=== PATIENT | female | born 1930 | race Caucasian/White ===

== ENCOUNTER 2018-10-07 17:16 | Inpatient (IN) ==
[2018-10-08] MEDS ORDERED: Naloxone 0.4 MG/ML INJ IVP PRN (01:02)
[2018-10-08] MEDS ORDERED: 0.9 % Sodium Chloride 1,000 ML IVC SCH (01:15)
--- NOTE | 2018-10-08 01:28 | Internal Med History&Physical ---
Date of Encounter: 10/07/17 Time of Encounter: 23:45 Internal Medicine - H&P: HPI Chief complaint: Fall Admitted From: Hospital to Hospital Transfer Plans for Post Hospital Care: Transfer Personnel Associate Care History of present illness: Ms. Frank is a 88 year old female with past medical history significant for hypertension, acid reflux, anemia, glaucoma, dementia, diverticulosis, chronic back pain, and depression who presents as hospital transfer from [facility] after being transferred from [facility] following a mechanical fall at her extended care facility while getting out of bed. Patient was transferred to [facility] for orthopedic surgery, however their OR had a water leak and patient subsequently had to be transferred to [facility]. HPI was limited with patient due to baseline history of dementia. Daughter was at bedside during admission. Daughter reports patient was getting out of bed last night at her nursing facility without assistance and fell and immediately had pain to her right hip. No known history of striking head or loss of consciousness. [facility] completed xray of right hip which showed fracture through the neck of the femur, mild degree of impaction with mild proximal displacement of distal fragment and moderate varus and posterior angulation, with intact and correctly located femoral head, and mild narrowing of the hip joint spaces bilaterally, and intact pelvic ring. [facility] also completed a chest xray which showed no acute process. [facility] completed CBC, BMP, troponin, and PT/INR which included a white blood cell count of 16, hemoglobin of 9, and GFR of 52. Patient currently denies any headache, chest pain, shortness of breath, cough, abdominal pain, bowel or bladder changes. Reviewed sending facility findings with patients daughter. Daughter denies any known recent illnesses, fever, or cough. Daughter understands code status will need changed for any surgical procedures and agrees. Past Med Surg Social Fam HX - Past Medical History Medical history: CHF, dementia, GERD, hypertension, other Additional medical history: Diverticulitis. Anemia. Glaucoma Psychiatric history: depression - Past Surgical History Surgical History: cholecystectomy, hysterectomy - Social History Smoking Status: Former smoker Alcohol use: none Drug use: none Internal Medicine - H&P: Meds Allergy/AdvReac Type Severity Reaction Status Date / Time TREVOR Inhibitors Allergy Swelling Verified 10/07/18 22:30 of the Eye enalaprilat [From Vasotec] Allergy Facial Verified 10/07/18 22:30 swelling aspirin [ASA] AdvReac GI bleed Verified 10/07/18 22:30 nitrofurantoin AdvReac UTI/Nausea Verified 10/07/18 22:30 [From Macrobid] All Systems PM: A 10-system review of systems was performed and is negative for pertinent findings except as documented above in the HPI. - Constitutional Vitals: Temp Pulse Resp BP Pulse Ox 99.0 F 82 18 139/64 96 10/07/18 21:59 10/07/18 21:59 10/07/18 21:59 10/07/18 21:59 10/07/18 21:59 Exam: General: Alert. Disoriented, at baseline per daughter secondary to dementia. Skin:Normal color, no rash, no lesions. HEENT:Pupils equal, round and reactive. Cardiovascular:Heart murmur noted. No JVD. Pulse regular. Lungs:Normal breath sounds, no wheezes or crackles. Abdomen:Soft, non-tender, no rigidity. Extremities:No deformity, no edema or tenderness, no joint swelling or clubbing. Denies any current tenderness to fracture site. Distal PMS intact. Neurological:Normal cognition and motor skills. Pulses:Carotid and radial pulses normal +2. Rest of the physical exam is non contributory. - Assessment and Plan (1) Fall Current Visit: Yes Status: Acute Assessment and plan: Denies any other injury besides right hip. Fall precautions ordered. Qualifiers: Encounter type: initial encounter Qualified Code(s): W19.XXXA - Unspecified fall, initial encounter (2) Femoral neck fracture Current Visit: Yes Status: Acute Assessment and plan: Sending ER obtained xray of right hip showing a fracture through the neck of the femur. Unable to complete orthopedic consultation at [facility] due to water leak in OR. Sending facility spoke to production internship ortho who agreed to see patient in consult. Pain control with PRN pain medications. NPO. Qualifiers: Qualified Code(s): S72.001A - Fracture of unspecified part of neck of right femur, initial encounter for closed fracture (3) Murmur, cardiac Current Visit: Yes Status: Acute Assessment and plan: No known history of cardiac murmur. Echocardiogram ordered. (4) Increased white blood cell count Current Visit: Yes Status: Acute Assessment and plan: No signs of infection. Chest xray clear. Afebrile. UA pending. Repeat labs ordered. Qualifiers: Leukocytosis type: unspecified Qualified Code(s): D72.829 - Elevated white blood cell count, unspecified (5) Decreased hemoglobin Current Visit: Yes Status: Acute Assessment and plan: History of anemia, unknown hemoglobin baseline. Repeat labs ordered. (6) Decreased GFR Current Visit: Yes Status: Acute Assessment and plan: Unknown baseline GFR. Avoid nephrotoxins. Repeat labs ordered. - Time Spent With Patient Total time spent is greater than 50% in coordination of care (as documented) at patient's floor/unit and/or counseling patient:
[2018-10-08 03:06] LABS: Bilirubin,Urine Negative (Negative); Blood,Urine Large (Negative); Clarity,Urine Turbid (Clear); Color,Urine Yellow (Yellow); Glucose,Urine (UA) Normal (Normal); Ketones,Urine Negative (Negative); Leukocyte Esterase,Urine Large (Negative); Nitrite,Urine Negative (Negative); Protein,Urine 30 mg/dL (Neg-Trace); Specific Gravity,Urine 1.013 (1.010-1.025); Urobilinogen,Urine Normal (Normal)
[2018-10-08 03:09] LABS: Hyaline Casts,Urine None Seen per lpf (None-Few); WBC,Urine TNTC per hpf (0-3)
[2018-10-08 03:14] LABS: Hematocrit 28.6 % (35.3-44.9); Hemoglobin 8.8 g/dL (11.5-15.4); Mean Corpuscular HGB Conc 30.8 g/dL (31.6-35.5); Mean Corpuscular Hemoglobin 25.8 pg (28.0-33.3); Mean Corpuscular Volume 83.9 fL (83.0-100.0); Mean Platelet Volume 10.2 fL (9.4-12.4); Platelet Count 392 K/mcL (140-400); Red Blood Count 3.41 M/mcL (3.82-4.97); Red Cell Distribution Width 16.9 % (11.5-14.5)
[2018-10-08 03:23] LABS: Bacteria,Urine Present per hpf (None-Few); RBC,Urine Present per hpf (0-3); Squamous Epithelial Cell,Urine Present per lpf (None-Few)
[2018-10-08 03:28] LABS: BUN/Creatinine Ratio 24 (6-26); Blood Urea Nitrogen 17 mg/dL (8-23); Calcium 8.5 mg/dL (8.6-10.3); Carbon Dioxide 26 mEq/L (23-29); Chloride 103 mEq/L (98-107); Glucose 113 mg/dL (70-105); Osmolality,Calculated 284 (280-300); Potassium 4.1 mEq/L (3.5-5.1); Sodium 136 mEq/L (136-145); eGFR For Non-African Americans > 60 (> 60)
--- NOTE | 2018-10-08 08:13 | Anesthesia Evaluation PreOp ---
Date of Encounter: 10/08/18 Time of Encounter: 10:36 - Past History Planned Operation: Right hip hemiarthroplasty Cardiac History: HTN, Other (anemia) Pulmonary History: Former smoker EXTRACT MIXER History: Other (dementia, depression, chronic back pain) Other Medical History: GERD, Other (glaucoma, diagnosed with UTI today and started on Rocephin (surgeon made aware)) Anesthesia History: No Prior Anesthetic Complications, Past Anesthesia (cholecystectomy, hysterectomy) Alcohol Use: none Drug use: none Medications and Allergies Ascorbic Acid [Vitamin C] 500 mg PO DAILY 10/08/18 [History] Cetirizine HCl [Zyrtec] 10 mg PO DAILY 10/08/18 [History] Citalopram Hydrobromide [Celexa] 40 mg PO 4XW 10/08/18 [History] Citalopram [CeleXA] 20 mg PO QMWF 10/08/18 [History] Docusate [Colace] 100 mg PO BID 10/08/18 [History] Esomeprazole Magnesium [Nexium] 40 mg PO DAILY 10/08/18 [History] Ferrous Sulfate [Iron] 325 mg PO BID 10/08/18 [History] Fluticasone Propionate Nasal [Flonase] 50 mcg NS DAILY 10/08/18 [History] Furosemide [Lasix] 20 mg PO DAILY 10/08/18 [History] HYDROcodone/Acet 5/325 mg [[place] 5-325 mg] 1 tab PO BID 10/08/18 [History] Latanoprost [Xalatan] 1 drop BOTH EYES HS 10/08/18 [History] Loratadine [Claritin] 10 mg PO DAILY 10/08/18 [History] Potassium Chloride 20 meq PO DAILY 10/08/18 [History] Raloxifene [Evista] 60 mg PO DAILY 10/08/18 [History] Sodium Chloride [Sodium Chloride Tab] 1 gm PO DAILY 10/08/18 [History] Allergy/AdvReac Type Severity Reaction Status Date / Time TREVOR Inhibitors Allergy Swelling Verified 10/07/18 22:30 of the Eye enalaprilat [From Vasotec] Allergy Facial Verified 10/07/18 22:30 swelling aspirin [ASA] AdvReac GI bleed Verified 10/07/18 22:30 nitrofurantoin AdvReac UTI/Nausea Verified 05/17/19 22:30 [From Macrobid] - Meds/Allergy Pre-op Review Medications Reviewed: Yes Allergies Reviewed: Yes Beta Blockers on Current Med List: No Anesthesia Results - Labs 10/08/18 02:45 10/08/18 02:45 - Imaging Additional studies: called switchboard wire worker helper, who quickly looked at TTE that was completed this AM; grossly normal EF and valves; in setting of murmur of unknown etiology and likely fall that was not syncopal in nature, from my (the anesthesiologist) standpoint, I am ok with this cardiovascular work-up prior to the induction of general anesthesia. Anesthesia Exam Last Vital Signs Temp 98.5 F 10/08/18 08:50 Pulse 83 10/08/18 08:50 Resp 18 10/08/18 08:50 BP 142/69 10/08/18 08:50 Pulse Ox 94 10/08/18 08:50 Weight: 53 kg NPO (# of Hours): > 8 hrs - HEENT Pupil (Motor): Pupils equal, EOMI Mallampati: III Teeth: Normal Oral Opening: Greater than 3 - EXTRACT MIXER LOC: Confused, Disoriented - Cardiac Rhythm: Regular Murmur: Systolic (grade 2-3 MICHELE) - Pulmonary Breath Sounds: bilateral Clear Respiratory Effort: Symmetrical Anesthesia Assess/Plan ASA Score: 3 Level of consciousness: Cooperative Anesthetic Plan: Precautions (surgeon aware of newly diagosed UTI today - abx were initiated for UTI around 9 am) Monitoring Plan: Standard Monitors Recovery Plan: PACU
[2018-10-08] MEDS ORDERED: NON-FORMULARY MEDICATION 1 EACH EACH (Cetirizine Hcl [Zyrtec] 10 MG) PO SCH (09:00)
[2018-10-08] MEDS: cefTRIAXone 1,000 MG in Water for inj. (sterile) 20 ML 10 ML IVP SCH (09:33)
[2018-10-08] MEDS: Furosemide 20 MG TABLET PO SCH (09:39)
[2018-10-08] MEDS: Ascorbic Acid 500 MG TABLET PO SCH (09:39)
[2018-10-08] MEDS: Loratadine 10 MG TABLET PO SCH (09:39)
[2018-10-08] MEDS: Fluticasone Propionate Nasal 50 MCG/SPRAY BOTTLE NS SCH (09:39)
[2018-10-08] MEDS ORDERED: *HR* OxyCODONE Immed Rel 5 MG TABLET PO PRN (10:40)
[2018-10-08] MEDS ORDERED: Acetaminophen IV 1,000 MG/100 ML INFUS..BTL IVPB ONE (10:40)
[2018-10-08] MEDS ORDERED: *HR* FentaNYL (PF) 100 MCG/2 ML VIAL IVP PRN (10:40)
--- NOTE | 2018-10-08 10:41 | History & Physical Report ---
Date of Encounter: 10/08/18 Time of Encounter: 10:40 24 Hour HP Update - Instructions Instructions: If the History and Physical is less than 30 days old and was completed prior to A.M. admission and or procedure and has NOT been updated on calendar day of procedure please complete this update prior to performing procedure. - Update Patient reports changes in Medical Condition: No Changes in examination, assessment, or condition: No Changes in Medication: No Preop tests/diagnostics Reviewed: Yes Surgery Remains Indicated: Yes Consent for Planned Operative Procedure(s) Verified: Yes
--- NOTE | 2018-10-08 10:42 | Orthopedic Consult Note ---
Date of Encounter: 10/08/18 Time of Encounter: 10:42 Assessment and Plan (1) Femoral neck fracture Current Visit: Yes Status: Acute After discussing the pros and cons of treatment options including non-operative and operative intervention with the patient's daughter, to allow for early mobility and pain control, they have elected to proceed with right hip hemiarthroplasty at this time. The risks and benefits of the procedure were fully explained in detail, including but not limited to the risk of infection, neurovascular injury, continued pain or stiffness, failure of surgery, reinjury, or need for additional surgery, DVT, PE, general risks of anesthesia and loss of limb or life. No guarantees were given or implied and all questions were answered. The patient understands all the risks and does wish to proceed with written consent. Surgery will be scheduled in a timely manner. Qualifiers: Encounter type: initial encounter Fracture type: closed Laterality: right Qualified Code(s): S72.001A - Fracture of unspecified part of neck of right femur, initial encounter for closed fracture History of Present Illness HPI: Ms. Frank is a 88 year old female past medical history significant for hypertension, acid reflux, anemia, glaucoma, dementia, diverticulosis, chronic back pain, and depression who presents as hospital transfer from [facility] after being transferred from [facility] following a mechanical fall at her extended care facility while getting out of bed. Patient was transferred to [facility] for orthopedic surgery, however their OR had a water leak and patient subsequently had to be transferred to [facility]. HPI was limited with patient due to baseline history of dementia. Per chart, patient was getting out of bed last night at her nursing facility without assistance and fell and immediately had pain and deformity to her right hip. No known history of striking head or loss of consciousness. Past Med Surg Social Fam HX - Past Medical History Medical history: CHF, dementia, GERD, hypertension, other Additional medical history: Diverticulitis. Anemia. Glaucoma Psychiatric history: depression - Past Surgical History Surgical History: cholecystectomy, hysterectomy - Social History Smoking Status: Former smoker Alcohol use: none Drug use: none Medications and Allergies Ascorbic Acid [Vitamin C] 500 mg PO DAILY 10/08/18 [History] Cetirizine HCl [Zyrtec] 10 mg PO DAILY 10/08/18 [History] Citalopram Hydrobromide [Celexa] 40 mg PO 4XW 10/08/18 [History] Citalopram [CeleXA] 20 mg PO QMWF 10/08/18 [History] Docusate [Colace] 100 mg PO BID 10/08/18 [History] Esomeprazole Magnesium [Nexium] 40 mg PO DAILY 10/08/18 [History] Ferrous Sulfate [Iron] 325 mg PO BID 10/08/18 [History] Fluticasone Propionate Nasal [Flonase] 50 mcg NS DAILY 10/08/18 [History] Furosemide [Lasix] 20 mg PO DAILY 10/08/18 [History] HYDROcodone/Acet 5/325 mg [[place] 5-325 mg] 1 tab PO BID 10/08/18 [History] Latanoprost [Xalatan] 1 drop BOTH EYES HS 10/08/18 [History] Loratadine [Claritin] 10 mg PO DAILY 10/08/18 [History] Potassium Chloride 20 meq PO DAILY 10/08/18 [History] Raloxifene [Evista] 60 mg PO DAILY 10/08/18 [History] Sodium Chloride [Sodium Chloride Tab] 1 gm PO DAILY 10/08/18 [History] Allergy/AdvReac Type Severity Reaction Status Date / Time TREVOR Inhibitors Allergy Swelling Verified 10/07/18 22:30 of the Eye enalaprilat [From Vasotec] Allergy Facial Verified 10/07/18 22:30 swelling aspirin [ASA] AdvReac GI bleed Verified 10/07/18 22:30 nitrofurantoin AdvReac UTI/Nausea Verified 10/07/18 22:30 [From Macrobid] ROS unobtainable: due to mental status Physical Exam - Constitutional Vitals: Temp Pulse Resp BP Pulse Ox 98.5 F 83 18 142/69 94 10/08/18 08:50 10/08/18 08:50 10/08/18 08:50 10/08/18 08:50 10/08/18 08:50 Exam: Consult Exam: Constitutional -Vitals reviewed -The patient is well developed and well nourished. -Mood is pleasant. -The patient is well groomed. Psychiatric -The patient is fully alert and oriented x 3. Respiratory: -Respiratory effort normal Abdomen: -Soft abdomen -Non tender -Non distended: Left upper extremity: -No deformities. The overlying skin is intact. No obvious signs of acute trauma. -No tenderness to palpation throughout. -No significant pain with passive motion of the shoulder, elbow, wrist, and fingers within the limits of the bed. -Able to make an "OK" sign, cross the index and long fingers, and extend the thumb. -Sensation grossly intact to light touch throughout the median, radial, and ulnar distributions. -Radial pulse is present; Fingers have good capillary refill. Right upper extremity: -No deformities The overlying skin is intact. No obvious signs of acute trauma. -No tenderness to palpation throughout. -No significant pain with passive motion of the shoulder, elbow, wrist, and fingers within the limits of the bed. -Able to make an "OK" sign, cross the index and long fingers, and extend the thumb. -Sensation grossly intact to light touch throughout the median, radial, and ulnar distributions. -Radial pulse is present; Fingers have good capillary refill. Left lower extremity: -No deformities. The overlying skin is intact. No obvious signs of acute trauma. -No tenderness to palpation throughout. -No pain with passive motion of the hip, knee, ankle, and toes within the limits of the bed. -No pain with axial loading of the thigh. -Able to dorsiflex and plantarflex the ankle and toes. -Sensation is grossly intact to light touch throughout the sural, saphenous, superficial peroneal, and deep peroneal distributions. -Toes have good capillary refill. Right lower extremity: -Right leg is short and externally rotated. The overlying skin is intact. Tenderness over her lateral hip. -Pain logroll and internal rotation. -Able to dorsiflex and plantarflex the ankle and toes. -Sensation is grossly intact to light touch throughout the sural, saphenous, sup erficial peroneal, and deep peroneal distributions. -Toes have good capillary refill. Results - Labs Result Diagrams: 10/08/18 02:45 10/08/18 02:45 Labs: Abnormal lab results WBC 15.7 K/mcL (4.3-11.1) H 10/08/18 02:45 RBC 3.41 M/mcL (3.82-4.97) L 10/08/18 02:45 Hgb 8.8 g/dL (11.5-15.4) L 10/08/18 02:45 Hct 28.6 % (35.3-44.9) L 10/08/18 02:45 MCH 25.8 pg (28.0-33.3) L 10/08/18 02:45 MCHC 30.8 g/dL (31.6-35.5) L 10/08/18 02:45 RDW 16.9 % (11.5-14.5) H 10/08/18 02:45 Glucose 113 mg/dL (70-105) H 10/08/18 02:45 Calcium 8.5 mg/dL (8.6-10.3) L 10/08/18 02:45 Turbid (Clear) A 10/08/18 02:45 30 mg/dL (Neg-Trace) H 10/08/18 02:45 Large (Negative) H 10/08/18 02:45 Ur Leukocyte Esterase Large (Negative) H 10/08/18 02:45 TNTC per hpf (0-3) H 10/08/18 02:45 Ur Culture Indicated? YES (NO) A 10/08/18 02:45 Crossmatch See Detail 10/08/18 08:27 H & H 10/08/18 Range/Units 02:45 Hgb 8.8 L (11.5-15.4) g/dL Hct 28.6 L (35.3-44.9) % All other labs normal. - Diagnostic results Hip x-ray: report reviewed, image reviewed (Displaced right femoral neck fracture) Consult Discharge Plan - Plan Referrals: NONE,PCP [Primary Care Provider] -
[2018-10-08] MEDS ORDERED: Ondansetron 4 MG/2 ML VIAL ONE (10:57)
[2018-10-08] MEDS ORDERED: Lidocaine -MPF 2% 2 ML VIAL ONE (10:57)
[2018-10-08] MEDS ORDERED: Dexamethasone 4 MG/ML VIAL ONE (10:57)
[2018-10-08] MEDS ORDERED: *HR* Propofol 200 MG/20 ML VIAL IVP ONE (10:57)
[2018-10-08] MEDS ORDERED: *HR* Rocuronium Bromide 50 MG/5 ML VIAL ONE (10:57)
[2018-10-08] MEDS ORDERED: *HR* Midazolam HCl 2 MG/2 ML VIAL ONE (10:57)
[2018-10-08] MEDS ORDERED: *HR* Succinylcholine 200 MG/10 ML VIAL IVP ONE (10:57)
[2018-10-08] MEDS ORDERED: *HR* FentaNYL (PF) 100 MCG/2 ML VIAL ONE (10:57)
[2018-10-08] MEDS ORDERED: Lidocaine -MPF 4% 5 ML AMPUL ONE (10:58)
[2018-10-08] MEDS ORDERED: Acetaminophen IV 1,000 MG/100 ML INFUS..BTL ONE (11:02)
[2018-10-08] MEDS ORDERED: Ethanol\\Acetic Acid\\Na Ace\\Ben 1,000 ML IRRIG.SOLN IR ONE (11:08)
[2018-10-08] MEDS ORDERED: *HR* Etomidate 40 MG/20 ML VIAL IVP ONE (11:20)
[2018-10-08] MEDS ORDERED: ceFAZolin 2,000 MG in Water for inj. (sterile) 20 ML IVP ONE (12:04)
[2018-10-08] MEDS ORDERED: *HR* Morphine 10 MG/ML VIAL ONE (12:06)
[2018-10-08] MEDS ORDERED: EPHEDrine 50 MG/ML VIAL ONE (12:48)
[2018-10-08] MEDS ORDERED: *HR* PHENYLEPHRINE 1,000 MCG/10 ML SYRINGE IVP ONE ×2 (12:53)
[2018-10-08] MEDS ORDERED: Neostigmine Methylsulfate 3 MG/3 ML SYRINGE ONE (12:57)
--- NOTE | 2018-10-08 13:24 | Orthopedic Operative Note ---
Date of procedure: 10/08/18 Procedure: Procedure: Right hip hemiarthroplasty Preoperative Diagnosis: Right displaced femoral neck fracture Postoperative Diagnosis: Same Surgeon: Rodolfo Suh MD Reciprocating Drill Operator: None Anesthesia: Spinal anesthetic EBL: 100 cc Complications: None Components used: Biomet Echo lateralized femoral stem, size 9, Endo II 45 mm head, -6 neck INDICATIONS: This is a 88 yo F who had a mechanical fall and sustained a right displaced femoral neck fracture. After discussing the procedure at length, and to allow for early mobilization and pain control, the patient's family elected for operative management with a right hip hemiarthroplasty. The risks and benefits of the procedure were fully explained. Those risks include but are not limited to, infection, neurovascular injury, continued pain, stiffness, further injury, need for further surgery, DVT, PE, loss of limb, and loss of life. The patient and her family understood all of these risks and wished to proceed. Informed consent was obtained. No guarantees were stated or implied. OPERATIVE REPORT: The patient was identified in the holding area. The right lower extremity was marked, and the patient was taken to the operating room. The patients head, neck and airway were protected by anesthesia through the case and general anesthetic was administered. The patient was then transferred to the operating table and placed in the lateral position on a peg board. All bony prominences were well padded. The right lower extremity was then prepped and draped in the normal manner. Preoperative antibiotics were given prior to incision. The patient was steriley prepped and draped. A surgical time out pr otocol was then performed. A posterior approach was made. Incision was made just posterior to the greater trochanter. Sharp dissection was carried through subcutaneous tissue down to the fascia, coagulating any skin bleeders. Fascia rani and gluteus rosalba fascia were then incised. Rosalba fibers were digitally dissected and a Charnley retractor was placed. The hip was extended and internally rotated. A Cobra retractor was then placed over the ilium to retract the abductors anteriorly. Electrocautery was then used to release the piriformis and then short external rotators and capsule from the posterior aspect of the hip joint and a full-thickness flap was created. This was tagged for later repair. The release was carried down distally to the level of the lesser trochanter. At t his point the hip was dislocated and the femoral neck fracture was exposed. A saw was used to freshen up the femoral neck cut approximately 1 fingerbreadth above the lesser trochanter. The femoral head was removed with a corkscrew. The fractured neck fragments were removed with a ronguer. We then exposed the femur using a femoral elevator, and sequentially remained and broached the femur to appropriate size in accordance with the Biomet system. We seated a size 9 mm broach and did initial trial reductions with a -6 neck. We had good soft tissue tensioning and stable range of motion, with good reproduction of leg lengths. The trials were removed and the femoral stem was press fit in place. Trial reductions were repeated with the -6 neck. Satisfied with the hip kinematics, we cleaned and dried the trunion and the final femoral head was impacted and the hip was reduced. We then did our final check of range of motion, stability and leg lengths. We then thoroughly irrigated the wound and closed the hip capsule with #1 ethibond. The piriformis tendon and external rotators were repaired through bone tunnels. Fascia rani was closed with #1 ethibond and subcutaneous tissues with 2-0 stratafix. Skin was closed with 3-0 stratafix. We then placed sterile dressings the patient was awoken by anesthesia and transferred to PACU in stable condition. Patient tolerated the procedure well. Postop plan: The patient will be transferred back to the floor and will be weight-bearing as tolerated postop with posterior hip precautions. Was there an executive assistant to president present: No Estimated blood loss (cc): 100
--- NOTE | 2018-10-08 13:36 | Event Note ---
Date of Encounter: 10/08/18 Time of Encounter: 09:00 Patient was seen and examined at bedside. Has no complaints, reports that she fell by slitting down, she is alert and oriented 0. hospital transfer from [facility] after being transferred from [facility] following a mechanical fall at her extended care facility while getting out of bed. As per H&P documentation, "patient was transferred to [facility] for orthopedic surgery, however their OR had a water leak and patient subsequently had to be transferred to [facility]. HPI was limited with patient due to baseline history of dementia. Daughter was at bedside during admission. Daughter reports patient was getting out of bed last night at her nursing facility without assistance and fell and immediately had pain to her right hip. No known history of striking head or loss of consciousness. " Vital signs reviewed, No acute distress, poor dentition, normocephalic and atraumatic Further rate and rhythm, S1 and S2 Clear to auscultation bilaterally. alert and oriented 0, moving all extremities except the right lower extremity secondary to pain. A/P s/p fall with right hip showing a fracture through the neck of the femur s/p OR on 10/08 UTI- continue with ceftriaxone Anemia: follow H/H closely, anemia work up labs sent ?dementia rule out ICH: CT head ordered as it is unknown if has hit her head and as she is Axox0 High risk for surgery
[2018-10-08] MEDS: *HR* Heparin 5,000 UNIT/ML VIAL SQ SCH ×2 (15:37→23:09)
[2018-10-08] MEDS: Latanoprost 2.5 ML BOTTLE BOTH EYES SCH (21:54)
[2018-10-09 03:26] LABS: Immature Reticulocyte % 13.7 % (11.0-38.0); Mean Corpuscular Hemoglobin 26.2 pg (28.0-33.3); Mean Platelet Volume 9.9 fL (9.4-12.4); Retculocyte # 0.04 M/mcL (0.05-0.10); Reticulocyte % 1.7 % (1.6-2.8)
[2018-10-09 03:27] LABS: Hematocrit 19.5 % (35.3-44.9); Mean Corpuscular HGB Conc 30.8 g/dL (31.6-35.5); Mean Corpuscular Volume 85.2 fL (83.0-100.0); Platelet Count 281 K/mcL (140-400); Red Blood Count 2.29 M/mcL (3.82-4.97); Red Cell Distribution Width 16.7 % (11.5-14.5)
[2018-10-09 03:43] LABS: BUN/Creatinine Ratio 21 (6-26); Blood Urea Nitrogen 16 mg/dL (8-23); Calcium 7.1 mg/dL (8.6-10.3); Carbon Dioxide 25 mEq/L (23-29); Chloride 108 mEq/L (98-107); Glucose 122 mg/dL (70-105); Osmolality,Calculated 284 (280-300); Sodium 136 mEq/L (136-145); eGFR For Non-African Americans > 60 (> 60)
[2018-10-09 03:48] LABS: Iron < 10 mcg/dL (50-170); Transferrin 160 mg/dL (203-362)
[2018-10-09 04:09] LABS: Folate 9.5 ng/mL (3.0-16.0)
[2018-10-09] MEDS ORDERED: 0.9 % Sodium Chloride 250 ML ONE ×2 (04:25→12:40)
[2018-10-09] MEDS: *HR* Heparin 5,000 UNIT/ML VIAL SQ SCH ×3 (04:54→23:47)
--- NOTE | 2018-10-09 08:34 | Orthopedics Progress Note ---
Date of Encounter: 10/09/18 Time of Encounter: 08:33 - Assessment and Plan (1) Femoral neck fracture Current Visit: Yes Status: Acute Qualifiers: Encounter type: initial encounter Fracture type: closed Laterality: right Qualified Code(s): S72.001A - Fracture of unspecified part of neck of right femur, initial encounter for closed fracture Subjective Interval history: No overnight issues. Pain is controlled. No nausea/vomiting. No CP/SOB. Vitals reviewed Extremity exam: Dressing clean, dry and intact No erythema or drainage Distally neurovascularly intact to motor/sensory exam No calf pain or tenderness s/p R hip hemiarthroplasty Continue current management PO pain and nausea control 2 u PRBC Up with PT Discharge planning Objective Vital signs: Vital Signs Temp Pulse Resp BP Pulse Ox 10/09/18 07:22 97.5 F L 62 14 95/56 10/09/18 06:32 98.3 F 67 16 99/61 98 10/09/18 05:03 98.5 F 61 14 102/55 99 10/09/18 04:48 98.1 F 86 14 104/59 98 10/09/18 02:41 98.1 F 86 14 104/59 98 10/08/18 23:02 97.4 F L 64 14 99/57 96 10/08/18 19:03 97.5 F L 80 12 112/66 98 10/08/18 16:22 97.8 F 84 14 122/60 93 10/08/18 15:35 98.4 F 69 14 116/66 94 10/08/18 15:00 98.2 F 82 14 99/60 92 10/08/18 14:21 97.5 F L 69 14 125/70 97 10/08/18 14:01 98.7 F 91 16 146/60 99 10/08/18 14:00 97 10/08/18 13:51 93 16 150/69 97 10/08/18 13:41 91 14 159/80 100 10/08/18 13:31 99.5 F 88 16 140/88 100 10/08/18 08:50 98.5 F 83 18 142/69 94 Intake and Output 10/08/18 10/09/18 10/09/18 23:59 07:59 15:59 Intake Total 200 / 200 250 / 250 Output Total 175 / 1425 50 / 50 Balance 25 / -1225 200 / 200 Intake: IV Fluids 100 / 100 Ancef 2,000 MG In 0.9 % Sodium 100 / 100 Chloride 100 ML @ 200 mls/hr IVPB Q8HR [facility] Rx#:[id number] Oral 100 / 100 0 / 0 Blood Product 250 / 250 Rbcs Leuko Poor As-3 Ph Unit 250 / 250 [id number] Output: Catheter 175 / 1025 50 / 50 Other: Weight 53.3 kg Patient Weight 10/09/18 23:59 Weight 53.3 kg - Labs CBC & BMP: 10/09/18 03:01 10/09/18 03:01 Labs: Abnormal lab results WBC 15.7 K/mcL (4.3-11.1) H 10/08/18 02:45 RBC 2.29 M/mcL (3.82-4.97) L 10/09/18 03:01 Hgb 6.0 g/dL (11.5-15.4) L* D 10/09/18 03:01 Hct 19.5 % (35.3-44.9) L 10/09/18 03:01 MCH 26.2 pg (28.0-33.3) L 10/09/18 03:01 MCHC 30.8 g/dL (31.6-35.5) L 10/09/18 03:01 RDW 16.7 % (11.5-14.5) H 10/09/18 03:01 Reticulocyte # 0.04 M/mcL (0.05-0.10) L 10/09/18 03:01 Chloride 108 mEq/L (98-107) H 10/09/18 03:01 Glucose 122 mg/dL (70-105) H 10/09/18 03:01 Calcium 7.1 mg/dL (8.6-10.3) L 10/09/18 03:01 Iron < 10 mcg/dL (50-170) L 10/09/18 03:01 160 mg/dL (203-362) L 10/09/18 03:01 Turbid (Clear) A 10/08/18 02:45 30 mg/dL (Neg-Trace) H 10/08/18 02:45 Large (Negative) H 10/08/18 02:45 Ur Leukocyte Esterase Large (Negative) H 10/08/18 02:45 TNTC per hpf (0-3) H 10/08/18 02:45 Ur Culture Indicated? YES (NO) A 10/08/18 02:45 Crossmatch See Detail 10/08/18 08:27 Consult Discharge Plan - Plan Referrals: NONE,PCP [Primary Care Provider] -
[2018-10-09] MEDS: cefTRIAXone 1,000 MG in Water for inj. (sterile) 20 ML 10 ML IVP SCH (10:31)
[2018-10-09] MEDS: Loratadine 10 MG TABLET PO SCH (10:32)
[2018-10-09] MEDS: Ascorbic Acid 500 MG TABLET PO SCH (10:32)
[2018-10-09] MEDS: Furosemide 20 MG TABLET PO SCH (10:32)
[2018-10-09] MEDS: Fluticasone Propionate Nasal 50 MCG/SPRAY BOTTLE NS SCH (11:10)
--- NOTE | 2018-10-09 12:53 | Internal Med Progress Note ---
Hospitalist Progress Note - Encounter Date of Encounter: 10/09/18 Time of Encounter: 09:00 - Subjective Interval History: Patient was seen and examined at bedside. Is alert and oriented 0. she is unsure as to why she was brought to the hospital. Apparently This is her baseline. Will discuss with daughter. She denies fever, chills, nausea, vomiting or diarrhea. Denies right lower extremity pain and or inability to move her toes. - Exam Vitals: Temp Pulse Resp BP Pulse Ox 97.8 F 67 16 105/68 95 10/09/18 10:00 10/09/18 10:00 10/09/18 10:00 10/09/18 10:10/09/18 10:00 Exam: General: Alert. Disoriented, at baseline per daughter secondary to dementia. Thin Skin:Normal color, no rash, no lesions. HEENT:Pupils equal, round and reactive. Poor dentition Cardiovascular:Heart murmur noted. No JVD. Pulse regular. Lungs:Normal breath sounds, no wheezes or crackles. Abdomen:Soft, non-tender, no rigidity. Thin Extremities: Reduced range of motion of the right lower extremity secondary to recent procedure, moves all other extremities. Bulk and strength is symmetric. Is able to wiggle toes of the right lower extremities. Neurological:Axox 0 (baseline as per daughter) no focal deficit Pulses:radial pulses normal +2. - Assessment and Plan (1) Femoral neck fracture Current Visit: Yes Status: Acute Assessment and Plan: .Right displaced femoral neck fracture status post Right hip hemiarthroplasty on 10/08 Pain control as per ortho Physical therapy and occupational therapy Case management and social workers DVT prophylaxis heparin subcutaneous (2) Fall Current Visit: Yes Status: Acute Assessment and Plan: Mechanical fall CT head was negative for any acute injury Denies any other injury besides right hip. Fall precautions ordered. (3) Acute blood loss as cause of postoperative anemia Current Visit: Yes Status: Acute Assessment and Plan: Hemoglobin trended down to 6 on 10/09 History transfuse 2 units of PRBC Continue to monitor H&H closely. Continue with iron supplementation as she has severe iron deficiency anemia. (4) Iron deficiency anemia Current Visit: Yes Status: Acute Assessment and Plan: Iron panel noted Started on IV iron per transition her to by mouth iron continue with PPI fobt (5) Urinary tract infection Current Visit: Yes Status: Acute Assessment and Plan: Started on ceftriaxone Urine cultures are growing gram-negative rods both follow sensitivities and de- escalate as per the cultures. (6) Dementia Current Visit: Yes Status: Acute Assessment and Plan: Fall precautions, seizure and aspiration precautions. RADIOLOGY NURSE was consulted will follow recommendations CT head was negative for any acute abnormalities. Elevate the head of the bed Frequent redirection. (7) DVT prophylaxis Current Visit: Yes Status: Acute Assessment and Plan: Heparin subcutaneous - Time Spent with Patient Total time spent is greater than 50% in coordination of care (as documented) at patient's floor/unit and/or counseling patient: Internal Medicine: Result - Labs CBC & Chem 7: 10/09/18 03:01 10/09/18 03:01 Labs: Short CBC 10/09/18 Range/Units 03:01 WBC 10.2 (4.3-11.1) K/mcL Hgb 6.0 L* D (11.5-15.4) g/dL Hct 19.5 L (35.3-44.9) % Plt Count 281 (140-400) K/mcL BMP 10/09/18 03:01 Sodium 136 Potassium 4.0 Chloride 108 H Carbon Dioxide 25 BUN 16 Creatinine 0.77 Glucose 122 H Calcium 7.1 L - Impressions Impressions Pelvis X-Ray 10/08/18 13:19 IMPRESSION: Status post total right hip arthroplasty, in gross anatomic alignment, with postoperative changes, without evidence of hardware complication, fracture or dislocation. D/ / Cristian Hermosillo MD / Cristian Hermosillo MD Interpreting Provider: Cristian Hermosillo MD Head CT 10/08/18 13:44 IMPRESSION: 1. No acute intracranial abnormality. D/ / Otto Gale MD / Otto Gale MD Interpreting Provider: Otto Gale MD Consult Discharge Plan - Plan Referrals: NONE,PCP [Primary Care Provider] - (1) Femoral neck fracture Qualifiers: Encounter type: initial encounter Fracture type: closed Laterality: right Qualified Code(s): S72.001A - Fracture of unspecified part of neck of right femur, initial encounter for closed fracture (2) Fall Qualifiers: Encounter type: initial encounter Qualified Code(s): W19.XXXA - Unspecified fall, initial encounter (5) Urinary tract infection Qualifiers: Urinary tract infection type: acute cystitis Hematuria presence: with hematuria Qualified Code(s): N30.01 - Acute cystitis with hematuria (6) Dementia Qualifiers: Dementia type: unspecified type Dementia behavioral disturbance: without behavioral disturbance Qualified Code(s): F03.90 - Unspecified dementia without behavioral disturbance
[2018-10-09] MEDS: Latanoprost 2.5 ML BOTTLE BOTH EYES SCH (19:40)
[2018-10-10 03:03] LABS: Hematocrit 26.8 % (35.3-44.9); Hemoglobin 8.7 g/dL (11.5-15.4); Mean Corpuscular HGB Conc 32.5 g/dL (31.6-35.5); Mean Corpuscular Hemoglobin 26.9 pg (28.0-33.3); Mean Corpuscular Volume 82.7 fL (83.0-100.0); Mean Platelet Volume 10.1 fL (9.4-12.4); Platelet Count 301 K/mcL (140-400); Red Blood Count 3.24 M/mcL (3.82-4.97); Red Cell Distribution Width 15.8 % (11.5-14.5)
[2018-10-10 03:23] LABS: BUN/Creatinine Ratio 20 (6-26); Blood Urea Nitrogen 17 mg/dL (8-23); Calcium 8.2 mg/dL (8.6-10.3); Carbon Dioxide 28 mEq/L (23-29); Chloride 103 mEq/L (98-107); Glucose 96 mg/dL (70-105); Osmolality,Calculated 285 (280-300); Potassium 4.2 mEq/L (3.5-5.1); Sodium 137 mEq/L (136-145); eGFR For Non-African Americans > 60 (> 60)
[2018-10-10] MEDS: *HR* Heparin 5,000 UNIT/ML VIAL SQ SCH ×3 (06:24→20:41)
[2018-10-10] MEDS: OXYCODONE Oral CONC 10 MG/0.5 ML ORAL.SYG SL PRN ×2 (07:37→20:40)
[2018-10-10] MEDS: Furosemide 20 MG TABLET PO SCH (08:23)
[2018-10-10] MEDS: Loratadine 10 MG TABLET PO SCH (08:23)
[2018-10-10] MEDS: Ascorbic Acid 500 MG TABLET PO SCH (08:23)
[2018-10-10] MEDS: cefTRIAXone 1,000 MG in Water for inj. (sterile) 20 ML 10 ML IVP SCH (08:24)
[2018-10-10] MEDS: Fluticasone Propionate Nasal 50 MCG/SPRAY BOTTLE NS SCH (08:26)
[2018-10-10] MEDS: Cefepime HCl 2,000 MG in 0.9 % Sodium Chloride Mini Bag 100 ML IVPB SCH ×2 (10:15→20:41)
--- NOTE | 2018-10-10 13:25 | Orthopedics Progress Note ---
Date of Encounter: 10/10/18 Time of Encounter: 13:24 - Assessment and Plan (1) Femoral neck fracture Current Visit: Yes Status: Acute Qualifiers: Encounter type: initial encounter Fracture type: closed Laterality: right Qualified Code(s): S72.001A - Fracture of unspecified part of neck of right femur, initial encounter for closed fracture Subjective Interval history: No overnight issues. Pain is controlled. No nausea/vomiting. No CP/SOB. Vitals reviewed Extremity exam: Dressing clean, dry and intact No erythema or drainage Distally neurovascularly intact to motor/sensory exam No calf pain or tenderness s/p R hip hemiarthroplasty Continue current management PO pain and nausea control Up with PT Discharge planning, f/u in 2 weeks after d/c Objective Vital signs: Vital Signs Temp Pulse Resp BP Pulse Ox 10/10/18 10:57 97.2 F L 81 16 112/66 97 10/10/18 08:48 96 10/10/18 06:38 99.0 F 81 20 126/69 96 10/10/18 04:25 98.6 F 76 16 111/62 96 10/09/18 23:02 98.8 F 77 16 114/72 96 10/09/18 19:50 98.4 F 70 18 106/58 98 10/09/18 15:22 97.8 F 65 14 108/58 98 Intake and Output 10/09/18 10/10/18 10/10/18 23:59 07:59 15:59 Intake Total 480 / 1102 240 / 920 680 / 920 Output Total 1075 / 1650 400 / 1000 600 / 1000 Balance -595 / -548 -160 / -80 80 / -80 Intake: IV Fluids 100 / 100 Maxipime 2,000 MG In 0.9 % 100 / 100 Sodium Chloride (Mini-Bag +) 100 ML @ 200 mls/hr IVPB Q12H [facility] Rx#:[id number] Oral 480 / 480 240 / 820 580 / 820 Output: Catheter 1075 / 1650 400 / 1000 600 / 1000 Other: Meal Breakfast Percent of Meal Consumed 10% Weight 53.14 kg Patient Weight 10/10/18 23:59 Weight 53.14 kg - Labs CBC & BMP: 10/10/18 02:46 10/10/18 02:46 Labs: Abnormal lab results WBC 14.0 K/mcL (4.3-11.1) H 10/10/18 02:46 RBC 3.24 M/mcL (3.82-4.97) L 10/10/18 02:46 Hgb 8.7 g/dL (11.5-15.4) L D 10/10/18 02:46 Hct 26.8 % (35.3-44.9) L 10/10/18 02:46 MCV 82.7 fL (83.0-100.0) L 10/10/18 02:46 MCH 26.9 pg (28.0-33.3) L 10/10/18 02:46 MCHC 30.8 g/dL (31.6-35.5) L 10/09/18 03:01 RDW 15.8 % (11.5-14.5) H 10/10/18 02:46 Reticulocyte # 0.04 M/mcL (0.05-0.10) L 10/09/18 03:01 Chloride 108 mEq/L (98-107) H 10/09/18 03:01 Glucose 122 mg/dL (70-105) H 10/09/18 03:01 Calcium 8.2 mg/dL (8.6-10.3) L 10/10/18 02:46 Iron < 10 mcg/dL (50-170) L 10/09/18 03:01 160 mg/dL (203-362) L 10/09/18 03:01 Turbid (Clear) A 10/08/18 02:45 30 mg/dL (Neg-Trace) H 10/08/18 02:45 Large (Negative) H 10/08/18 02:45 Ur Leukocyte Esterase Large (Negative) H 10/08/18 02:45 TNTC per hpf (0-3) H 10/08/18 02:45 Ur Culture Indicated? YES (NO) A 10/08/18 02:45 Crossmatch See Detail 10/08/18 08:27 Consult Discharge Plan - Plan Referrals: NONE,PCP [Primary Care Provider] -
--- NOTE | 2018-10-10 13:59 | Internal Med Progress Note ---
Hospitalist Progress Note - Encounter Date of Encounter: 10/10/18 Time of Encounter: 08:00 - Subjective Interval History: Patient was seen and examined at bedside. Sitting up in chair and eating breakfast in no acute distress. She is alert and oriented 1 to herself. As is her baseline as per daughter. Has no complaints currently, as per nursing staff there is no acute overnight events. She tolerated transfusion with increase in her hemoglobin to above 8. She denies fever, chills, nausea, vomiting or diarrhea. - Exam Vitals: Temp Pulse Resp BP Pulse Ox 97.2 F L 81 16 112/66 97 10/10/18 10:57 10/10/18 10:57 10/10/18 10:57 10/10/18 10:57 10/10/18 10:57 Exam: General: Alert. Disoriented, at baseline per daughter secondary to dementia. Thin Skin:Normal color, no rash, no lesions. HEENT:Pupils equal, round and reactive. Poor dentition Cardiovascular:Heart murmur noted. No JVD. Pulse regular. Lungs:Normal breath sounds, no wheezes or crackles. Abdomen:Soft, non-tender, no rigidity. Thin Extremities: Reduced range of motion of the right lower extremity secondary to recent procedure, moves all other extremities. Bulk and strength is symmetric. Is able to wiggle toes of the right lower extremities. Neurological:Axox 0 (baseline as per daughter) no focal deficit Pulses:radial pulses normal +2. - Assessment and Plan (1) Femoral neck fracture Current Visit: Yes Status: Acute Assessment and Plan: .Right displaced femoral neck fracture status post Right hip hemiarthroplasty on 10/08 Pain control as per ortho Physical therapy and occupational therapy Case management and social workers DVT prophylaxis heparin subcutaneous (2) Fall Current Visit: Yes Status: Acute Assessment and Plan: Mechanical fall CT head was negative for any acute injury Denies any other injury besides right hip. Fall precautions ordered. (3) Acute blood loss as cause of postoperative anemia Current Visit: Yes Status: Acute Assessment and Plan: Hemoglobin trended down to 6 on 10/09 Status post 2 units of PRBC with improvement of her H&H to above 8 Continue to monitor H&H closely. Continue with iron supplementation as she has severe iron deficiency anemia. (4) Iron deficiency anemia Current Visit: Yes Status: Acute Assessment and Plan: Iron panel noted Started on IV iron per transition her to by mouth iron continue with PPI fobt pending (5) Urinary tract infection Current Visit: Yes Status: Acute Assessment and Plan: Was originally started on ceftriaxone, urine cultures now with Pseudomonas Is fluoroquinolone resistant so she was started on cefepime (6) Dementia Current Visit: Yes Status: Acute Assessment and Plan: Fall precautions, seizure and aspiration precautions. CHEMICAL PLANT OPERATOR SUPERVISOR was consulted will follow recommendations CT head was negative for any acute abnormalities. Elevate the head of the bed Frequent redirection. (7) DVT prophylaxis Current Visit: Yes Status: Acute Assessment and Plan: Heparin subcutaneous - Time Spent with Patient Total time spent is greater than 50% in coordination of care (as documented) at patient's floor/unit and/or counseling patient: Internal Medicine: Result - Labs CBC & Chem 7: 10/10/18 02:46 10/10/18 02:46 Labs: Short CBC 10/10/18 Range/Units 02:46 WBC 14.0 H (4.3-11.1) K/mcL Hgb 8.7 L D (11.5-15.4) g/dL Hct 26.8 L (35.3-44.9) % Plt Count 301 (140-400) K/mcL BMP 10/10/18 02:46 Sodium 137 Potassium 4.2 Chloride 103 Carbon Dioxide 28 BUN 17 Creatinine 0.84 Glucose 96 Calcium 8.2 L Consult Discharge Plan - Plan Referrals: NONE,PCP [Primary Care Provider] - (1) Femoral neck fracture Qualifiers: Encounter type: initial encounter Fracture type: closed Laterality: right Qualified Code(s): S72.001A - Fracture of unspecified part of neck of right femur, initial encounter for closed fracture (2) Fall Qualifiers: Encounter type: initial encounter Qualified Code(s): W19.XXXA - Unspecified fall, initial encounter (4) Iron deficiency anemia Qualifiers: Iron deficiency anemia type: unspecified iron deficiency Qualified Code(s): D50.9 - Iron deficiency anemia, unspecified (5) Urinary tract infection Qualifiers: Urinary tract infection type: acute cystitis Hematuria presence: with hematuria Qualified Code(s): N30.01 - Acute cystitis with hematuria (6) Dementia Qualifiers: Dementia type: unspecified type Dementia behavioral disturbance: without b ehavioral disturbance Qualified Code(s): F03.90 - Unspecified dementia without behavioral disturbance
[2018-10-10] MEDS: Latanoprost 2.5 ML BOTTLE BOTH EYES SCH (20:41)
[2018-10-11] MEDS: *HR* Heparin 5,000 UNIT/ML VIAL SQ SCH ×3 (06:28→22:34)
[2018-10-11 07:02] LABS: Hematocrit 24.7 % (35.3-44.9); Hemoglobin 8.1 g/dL (11.5-15.4); Mean Corpuscular HGB Conc 32.8 g/dL (31.6-35.5); Mean Corpuscular Hemoglobin 27.4 pg (28.0-33.3); Mean Corpuscular Volume 83.4 fL (83.0-100.0); Mean Platelet Volume 10.4 fL (9.4-12.4); Platelet Count 301 K/mcL (140-400); Red Blood Count 2.96 M/mcL (3.82-4.97); Red Cell Distribution Width 15.9 % (11.5-14.5)
[2018-10-11 08:05] LABS: BUN/Creatinine Ratio 23 (6-26); Blood Urea Nitrogen 16 mg/dL (8-23); Calcium 8.2 mg/dL (8.6-10.3); Carbon Dioxide 27 mEq/L (23-29); Chloride 101 mEq/L (98-107); Glucose 87 mg/dL (70-105); Osmolality,Calculated 281 (280-300); Potassium 3.7 mEq/L (3.5-5.1); Sodium 135 mEq/L (136-145); eGFR For Non-African Americans > 60 (> 60)
[2018-10-11] MEDS: Cefepime HCl 2,000 MG in 0.9 % Sodium Chloride Mini Bag 100 ML IVPB SCH ×2 (08:26→20:46)
[2018-10-11] MEDS: Ascorbic Acid 500 MG TABLET PO SCH (12:36)
[2018-10-11] MEDS: Loratadine 10 MG TABLET PO SCH (12:36)
[2018-10-11] MEDS: Fluticasone Propionate Nasal 50 MCG/SPRAY BOTTLE NS SCH (12:36)
[2018-10-11] MEDS: Furosemide 20 MG TABLET PO SCH (12:36)
--- NOTE | 2018-10-11 14:28 | Internal Med Progress Note ---
Hospitalist Progress Note - Encounter Date of Encounter: 10/11/18 Time of Encounter: 08:00 - Subjective Interval History: Patient was seen and examined at bedside. Sitting up in chair and eating breakfast in no acute distress. She is alert and oriented 1 to herself.no acute overnight events.She denies fever, chills, nausea, vomiting or diarrhea. - Exam Vitals: Temp Pulse Resp BP Pulse Ox 98.7 F 78 16 131/68 93 10/11/18 12:14 10/11/18 12:14 10/11/18 12:14 10/11/18 12:14 10/11/18 12:14 Exam: General: Alert. Disoriented, at baseline per daughter secondary to dementia. Thin Skin:Normal color, no rash, no lesions. HEENT:Pupils equal, round and reactive. Poor dentition Cardiovascular:Heart murmur noted. No JVD. Pulse regular. Lungs:Normal breath sounds, no wheezes or crackles. Abdomen:Soft, non-tender, no rigidity. Thin Extremities: Reduced range of motion of the right lower extremity secondary to recent procedure, moves all other extremities. Bulk and strength is symmetric. Is able to wiggle toes of the right lower extremities. Neurological:Axox1 (baseline as per daughter) no focal deficit Pulses:radial pulses normal +2. - Assessment and Plan (1) Femoral neck fracture Current Visit: Yes Status: Acute Assessment and Plan: .Right displaced femoral neck fracture status post Right hip hemiarthroplasty on 10/08 Pain control as per ortho Physical therapy and occupational therapy Case management and social workers DVT prophylaxis heparin subcutaneous (2) Fall Current Visit: Yes Status: Acute Assessment and Plan: Mechanical fall as per documentation on admission CT head was negative for any acute injury Denies any other injury besides right hip. Fall precautions ordered. (3) Acute blood loss as cause of postoperative anemia Current Visit: Yes Status: Acute Assessment and Plan: Hemoglobin trended down to 6 on 10/09 Status post 2 units of PRBC with improvement of her H&H to above 8 Continue to monitor H&H closely. Continue with iron supplementation as she has severe iron deficiency anemia. (4) Iron deficiency anemia Current Visit: Yes Status: Acute Assessment and Plan: Iron panel noted Started on IV iron for 3 days and transition her to by mouth iron continue with PPI fobt pending Will need further workup of her iron deficiency anemia. (5) Urinary tract infection Current Visit: Yes Status: Acute Assessment and Plan: Was originally started on ceftriaxone, urine cultures now with Pseudomonas Is fluoroquinolone resistant so she was started on cefepime Nursing staff aware to have mid line placed per patient Remove Spring, bladder scan every 4 hours (6) Dementia Current Visit: Yes Status: Acute Assessment and Plan: Fall precautions, seizure and aspiration precautions. NUMERICAL TOOL PROGRAMMER was consulted will follow recommendations CT head was negative for any acute abnormalities. Elevate the head of the bed Frequent redirection. (7) DVT prophylaxis Current Visit: Yes Status: Acute Assessment and Plan: Heparin subcutaneous - Time Spent with Patient Total time spent is greater than 50% in coordination of care (as documented) at patient's floor/unit and/or counseling patient: Internal Medicine: Result - Labs CBC & Chem 7: 10/11/18 06:19 10/11/18 06:19 Labs: Short CBC 10/11/18 Range/Units 06:19 WBC 12.3 H (4.3-11.1) K/mcL Hgb 8.1 L (11.5-15.4) g/dL Hct 24.7 L (35.3-44.9) % Plt Count 301 (140-400) K/mcL BMP 10/11/18 06:19 Sodium 135 L Potassium 3.7 Chloride 101 Carbon Dioxide 27 BUN 16 Creatinine 0.69 Glucose 87 Calcium 8.2 L Consult Discharge Plan - Plan Referrals: Rodolfo Suh MD [Non-Partnered Physician] - 10/24/18 1:00 pm (1) Femoral neck fracture Qualifiers: Encounter type: initial encounter Fracture type: closed Laterality: right Qualified Code(s): S72.001A - Fracture of unspecified part of neck of right fem ur, initial encounter for closed fracture (2) Fall Qualifiers: Encounter type: initial encounter Qualified Code(s): W19.XXXA - Unspecified fall, initial encounter (4) Iron deficiency anemia Qualifiers: Iron deficiency anemia type: unspecified iron deficiency Qualified Code(s): D50.9 - Iron deficiency anemia, unspecified (5) Urinary tract infection Qualifiers: Urinary tract infection type: acute cystitis Hematuria presence: with hematuria Qualified Code(s): N30.01 - Acute cystitis with hematuria (6) Dementia Qualifiers: Dementia type: unspecified type Dementia behavioral disturbance: without behavioral disturbance Qualified Code(s): F03.90 - Unspecified dementia without behavioral disturbance
--- NOTE | 2018-10-11 19:55 | Urology - Consult Note ---
Date of Encounter: 10/11/18 Time of Encounter: 19:53 - Assessment and Plan (1) Urinary retention Current Visit: Yes Status: Acute Assessment and plan: Failed trauma void earlier today. Multiple attempts by nursing staff to pass Spring catheter unsuccessful. Patient with history of difficult Spring. Exam with vaginal atrophy and narrowing of the introitus along with retroversion of the urethra rendering not visible at bedside exam. Under sterile technique difficult Spring was placed through palpation and blind technique. 16-Martiniquais Spring secured. Anticipate return of more normal voiding with recovery from recent surgery. Plan: Discharge to rehabilitation with indwelling Spring. Trauma void in 1 week's time. (2) Urinary tract infection Current Visit: Yes Status: Acute Assessment and plan: Pseudomonas UTI on initial voided urine from 10/08/2018. Patient currently on appropriate antibiotic therapy. Incomplete bladder emptying is likely contributing factor. Plan: Maintain Spring catheter for at least one week to allow for resolution of UTI prior to next trial of void. Antibiotic therapy as per primary service Qualifiers: Urinary tract infection type: acute cystitis Hematuria presence: with hematuria Qualified Code(s): N30.01 - Acute cystitis with hematuria Urology CN:HPI Consult date: 10/11/18 Requesting physician: Odalis Golden History of present illness: Ms. Frank is a 88 year old female with past medical history significant for hypertension, acid reflux, anemia, glaucoma, dementia, diverticulosis, chronic back pain, and depression who presents as hospital transfer from [facility] after being transferred from [facility] following a mechanical fall at her extended care facility while getting out of bed. Patient was transferred to [facility] for orthopedic surgery, however their OR had a water leak and patient subsequently had to be transferred to [facility]. HPI was limited with patient due to baseline history of dementia. Daughter was at bedside during admission. Daughter reports patient was getting out of bed last night at her nursing facility without assistance and fell and immediately had pain to her right hip. No known history of striking head or loss of consciousness. [facility] completed xray of right hip which showed fracture through the neck of the femur, mild degree of impaction with mild proximal displacement of distal fragment and moderate varus and posterior angulation, with intact and correctly located femoral head, and mild narrowing of the hip joint spaces bilaterally, and intact pelvic ring. [facility] also completed a chest xray which showed no acute process. Griselda Carias completed CBC, BMP, troponin, and PT/INR which included a white blood cell count of 16, hemoglobin of 9, and GFR of 52. Patient currently denies any headache, chest pain, shortness of breath, cough, abdominal pain, bowel or bladder changes. Reviewed sending facility findings with patients daughter. Daughter denies any known recent illnesses, fever, or cough. Daughter understands code status will need changed for any surgical procedures and agrees. Patient now status post right hip pinning. Trial of void today unsuccessful with PVRs greater than 500. Multiple attempts by nursing staff to pass Spring catheter unsuccessful. Past Med Surg Social Fam HX - Past Medical History Medical history: CHF, dementia, GERD, hypertension, other Additional medical history: Diverticulitis. Anemia. Glaucoma Psychiatric history: depression - Past Surgical History Surgical History: cholecystectomy, hysterectomy - Social History Smoking Status: Former smoker Alcohol use: none Drug use: none Medications and Allergies Ascorbic Acid [Vitamin C] 500 mg PO 162910/08/18 [History] Calcium Carbonate [Calcium] 600 mg PO BID 10/08/18 [History] Cetirizine HCl [Zyrtec] 10 mg PO 199910/08/18 [History] Cholecalciferol (Vitamin D3) [Vitamin D] 5,000 unit PO 162910/08/18 [History] Citalopram Hydrobromide [Celexa] 40 mg PO SUTUTHSA 10/08/18 [History] Citalopram [CeleXA] 20 mg PO MOWEFR 10/08/18 [History] Docusate [Colace] 100 mg PO BID 10/08/18 [History] Esomeprazole Magnesium [Nexium] 40 mg PO DAILY 10/08/18 [History] Ferrous Sulfate 325 mg PO BID 10/08/18 [History] Fluticasone Propionate Nasal [Flonase] 2 spray NS 199910/08/18 [History] Furosemide [Lasix] 20 mg PO DAILY 10/08/18 [History] Glycerin/Propylene Glycol [Artificial Tears Drops] 1 drop BOTH EYES Q8H PRN 10/08/18 [History] HYDROcodone/Acet 5/325 mg [[place] 5-325 mg] 1 tab PO BID 10/08/18 [History] Latanoprost [Xalatan] 1 drop BOTH EYES HS 10/08/18 [History] Loratadine [Claritin] 10 mg PO DAILY PRN 10/08/18 [History] Potassium Chloride 20 meq PO DAILY 10/08/18 [History] Raloxifene [Evista] 60 mg PO 2000 10/08/18 [History] Sodium Chloride [Sodium Chloride Tab] 1 gm PO DAILY 10/08/18 [History] Allergy/AdvReac Type Severity Reaction Status Date / Time TREVOR Inhibitors Allergy Swelling Verified 10/07/18 22:30 of the Eye enalaprilat [From Vasotec] Allergy Facial Verified 10/07/18 22:30 swelling aspirin [ASA] AdvReac GI bleed Verified 10/07/18 22:30 nitrofurantoin AdvReac UTI/Nausea Verified 10/07/18 22:30 [From Macrobid] Review of Systems ROS unobtainable: due to mental status Exam Initial Vital Signs Temp Pulse Resp BP Pulse Ox 99.0 F 82 18 139/64 96 10/07/18 21:59 10/07/18 21:59 10/07/18 21:59 10/07/18 21:59 10/07/18 21:59 - General physical appearance Present: no distress - Eyes Absent: icteric - ENT Present: normal mucosa - Neck Present: trachea midline - Respiratory Present: normal respiratory effort, other (Nasal cannula in place) - Abdomen Abdomen: Present: non tender - Genitourinary Present: other (Atrophic vaginitis) - Rectum Rectum: Present: no bleeding - Integumentary Present: no growths - Neurologic Present: confused - Musculoskeletal Present: other (Moves extremities bilaterally) Urology Results - Labs 10/11/18 06:19 10/11/18 06:19 Abnormal lab results WBC 12.3 K/mcL (4.3-11.1) H 10/11/18 06:19 RBC 2.96 M/mcL (3.82-4.97) L 10/11/18 06:19 Hgb 8.1 g/dL (11.5-15.4) L 10/11/18 06:19 Hct 24.7 % (35.3-44.9) L 10/11/18 06:19 MCV 82.7 fL (83.0-100.0) L 10/10/18 02:46 MCH 27.4 pg (28.0-33.3) L 10/11/18 06:19 MCHC 30.8 g/dL (31.6-35.5) L 10/09/18 03:01 RDW 15.9 % (11.5-14.5) H 10/11/18 06:19 Reticulocyte # 0.04 M/mcL (0.05-0.10) L 10/09/18 03:01 Sodium 135 mEq/L (136-145) L 10/11/18 06:19 Chloride 108 mEq/L (98-107) H 10/09/18 03:01 Glucose 122 mg/dL (70-105) H 10/09/18 03:01 Calcium 8.2 mg/dL (8.6-10.3) L 10/11/18 06:19 Iron < 10 mcg/dL (50-170) L 10/09/18 03:01 160 mg/dL (203-362) L 10/09/18 03:01 Turbid (Clear) A 10/08/18 02:45 30 mg/dL (Neg-Trace) H 10/08/18 02:45 Large (Negative) H 10/08/18 02:45 Ur Leukocyte Esterase Large (Negative) H 10/08/18 02:45 TNTC per hpf (0-3) H 10/08/18 02:45 Ur Culture Indicated? YES (NO) A 10/08/18 02:45 Crossmatch See Detail 10/08/18 08:27 Diabetes panel 10/11/18 Range/Units 06:19 Sodium 135 L (136-145) mEq/L Potassium 3.7 (3.5-5.1) mEq/L Chloride 101 (98-107) mEq/L Carbon Dioxide 27 (23-29) mEq/L BUN 16 (8-23) mg/dL Creatinine 0.69 (0.60-1.20) mg/dL Glucose 87 (70-105) mg/dL Calcium 8.2 L (8.6-10.3) mg/dL Calcium panel 10/11/18 Range/Units 06:19 Calcium 8.2 L (8.6-10.3) mg/dL Pituitary panel 10/11/18 Range/Units 06:19 Sodium 135 L (136-145) mEq/L Potassium 3.7 (3.5-5.1) mEq/L Chloride 101 (98-107) mEq/L Carbon Dioxide 27 (23-29) mEq/L BUN 16 (8-23) mg/dL Creatinine 0.69 (0.60-1.20) mg/dL Glucose 87 (70-105) mg/dL Calcium 8.2 L (8.6-10.3) mg/dL Adrenal panel 10/11/18 Range/Units 06:19 Sodium 135 L (136-145) mEq/L Potassium 3.7 (3.5-5.1) mEq/L Chloride 101 (98-107) mEq/L Carbon Dioxide 27 (23-29) mEq/L BUN 16 (8-23) mg/dL Creatinine 0.69 (0.60-1.20) mg/dL Glucose 87 (70-105) mg/dL Calcium 8.2 L (8.6-10.3) mg/dL All other labs normal. Procedures:Urology - Catheter Insertion (Urinary) Prophylactic antibiotics given: Yes Bladder Scan/Ultrasound used before catheterization: Yes Preparation: Povidone-Iodine Type of catheter inserted: 2 way, silastic Catheter Martiniquais Size: 16 Topical anesthesia used: No Results: successfully catheterized-immediate flow Urine Appearance: Clear, Sediment Patient tolerated procedure: no complications Complications: none Additional comments: Atrophic vaginitis, narrowed introitus and retroverted urethral meatus complicat ed procedure. This extended time, increased patient discomfort and increase the overall intensity and technical difficulty of the procedure. Consult Discharge Plan - Plan Referrals: Rodolfo Suh MD [Non-Partnered Physician] - 10/24/18 1:00 pm
[2018-10-11] MEDS: Latanoprost 2.5 ML BOTTLE BOTH EYES SCH (20:51)
[2018-10-12] MEDS: *HR* Heparin 5,000 UNIT/ML VIAL SQ SCH ×2 (06:37→15:38)
[2018-10-12 06:48] LABS: Hemoglobin 8.9 g/dL (11.5-15.4); Mean Corpuscular HGB Conc 31.8 g/dL (31.6-35.5); Mean Corpuscular Hemoglobin 26.9 pg (28.0-33.3); Mean Corpuscular Volume 84.6 fL (83.0-100.0); Platelet Count 339 K/mcL (140-400); Red Blood Count 3.31 M/mcL (3.82-4.97); Red Cell Distribution Width 15.9 % (11.5-14.5)
[2018-10-12] MEDS: Cefepime HCl 2,000 MG in 0.9 % Sodium Chloride Mini Bag 100 ML IVPB SCH ×2 (07:49→17:49)
[2018-10-12] MEDS: Ascorbic Acid 500 MG TABLET PO SCH (07:55)
[2018-10-12] MEDS: Furosemide 20 MG TABLET PO SCH (07:56)
[2018-10-12] MEDS: Fluticasone Propionate Nasal 50 MCG/SPRAY BOTTLE NS SCH (07:56)
[2018-10-12] MEDS: Loratadine 10 MG TABLET PO SCH (07:56)
--- NOTE | 2018-10-12 08:50 | Urology Progress Note ---
Date of Encounter: 10/12/18 Time of Encounter: 08:30 - Assessment and Plan (1) Urinary retention Current Visit: Yes Status: Acute Assessment and plan: Patient is an 88-year-old female who presents with postoperative urinary reten tion and complex catheter placement. Spring catheter is indwelling and draining sufficiently. Patient will be discharged to rehabilitation facility with Spring in place and plan for voiding trial within 1 week of discharge. Urology will sign off, but we are always available if needed. (2) Urinary tract infection Current Visit: Yes Status: Acute Assessment and plan: Patient is an 80-year-old female who presents with a Pseudomonas urinary tract infection. Patient is receiving IV cefepime. Recommend an additional 10-14 days of culture sensitive oral antibiotics after discharge. Qualifiers: Urinary tract infection type: acute cystitis Hematuria presence: with hematuria Qualified Code(s): N30.01 - Acute cystitis with hematuria Progress Note Narrative: Patient seen and examined lying in bed in no apparent distress. Spring catheter indwelling and draining transparent, clear yellow urine into bedside bag. Objective Initial Vital Signs Temp Pulse Resp BP Pulse Ox 99.0 F 82 18 139/64 96 10/07/18 21:59 10/07/18 21:59 10/07/18 21:59 10/07/18 21:59 10/07/18 21:59 - General physical appearance Present: no distress, no pain - Respiratory Present: normal expansion, normal respiratory effort - Abdomen Absent: distended - Genitourinary Urine Appearance: Present: Clear - Integumentary Present: no rash, no abnormal pigmentation - Musculoskeletal Present: normal posture - Psychiatric Present: other (Patient sleeping). Absent: oriented to time, oriented to person, oriented to place, speech is normal, memory intact - Labs 10/12/18 06:16 10/11/18 06:19 Consult Discharge Plan - Plan Referrals: Rodolfo Suh MD [Non-Partnered Physician] - 10/24/18 1:00 pm
[2018-10-12] MEDS: OXYCODONE Oral CONC 10 MG/0.5 ML ORAL.SYG SL PRN ×2 (09:26→17:49)
--- NOTE | 2018-10-12 10:42 | Discharge Summary ---
- NOTES TO OUTPATIENT PROVIDER Notes to Outpatient Provider: CBC in 1 week after the completion of antibiotics to ensure resolution of leukocytosis with complicated UTI Orders not resulted at time of discharge: Pending orders 10/08/18 13:02 Surgical Pathology [PTH] Routine Date of Encounter: 10/12/18 Time of Encounter: 08:15 - Discharge Diagnosis (1) Fall Priority: Secondary Status: Acute Qualifiers: Encounter type: initial encounter Qualified Code(s): W19.XXXA - Unspecified fall, initial encounter (2) Femoral neck fracture Priority: Primary Status: Acute Qualifiers: Encounter type: initial encounter Fracture type: closed Laterality: right Qualified Code(s): S72.001A - Fracture of unspecified part of neck of right femur, initial encounter for closed fracture (3) Acute blood loss as cause of postoperative anemia Priority: Secondary Status: Acute (4) Iron deficiency anemia Priority: Secondary Status: Acute Qualifiers: Iron deficiency anemia type: unspecified iron deficiency Qualified Code(s): D50.9 - Iron deficiency anemia, unspecified (5) DVT prophylaxis Priority: Secondary Status: Acute (6) Dementia Priority: Secondary Status: Acute Qualifiers: Dementia type: unspecified type Dementia behavioral disturbance: without behavioral disturbance Qualified Code(s): F03.90 - Unspecified dementia without behavioral disturbance (7) Urinary tract infection Priority: Secondary Status: Acute Qualifiers: Urinary tract infection type: acute cystitis Hematuria presence: with hematuria Qualified Code(s): N30.01 - Acute cystitis with hematuria Hospital course: Ms. Frank is a 88 year old female with history of dementia, hypertension, GERD, depression, who was admitted for fall with right femoral neck fracture and P seudomonas UTI. Underwent right hip hemiarthroplasty on 10/08. Postoperatively, she developed anemia with hemoglobin dropped to 6.0 requiring 2 units of PRBC transfusion. Hemoglobin at the time of discharge was stable around 9. She was initially treated with IV Rocephin for UTI but urine culture later came back positive for Pseudomonas sensitive to cefepime hence abx was switched to Maxipime. She also failed voiding trial prior to discharge and require urology evaluation for reinsertion of Pollard catheter. She will be discharged to [facility] with a total of 7 days of IV antibiotics and with Pollard catheter with voiding trial as an outpatient in one week. Pt will also follow up with orthopedics in 2 weeks. Discharge discussed with: patient, nurse, social work - Time Spent with Patient Total time spent providing and/or coordinating discharge services: 33 mins - Discharge Medications Prescriptions: New Cefepime HCl/Dextrose, Iso-Osm [Cefepime 2 gm Injection] 2 gm IV BID 5 Days #10 froz.piggy Continued Loratadine [Claritin] 10 mg PO DAILY PRN PRN Reason: Congestion Ascorbic Acid [Vitamin C] 500 mg PO 1630 Raloxifene [Evista] 60 mg PO 1999 Latanoprost [Xalatan] 1 drop BOTH EYES HS Fluticasone Propionate Nasal [Flonase] 2 spray NS 1999 Cetirizine HCl [Zyrtec] 10 mg PO 1999 Sodium Chloride [Sodium Chloride Tab] 1 gm PO DAILY Potassium Chloride 20 meq PO DAILY Furosemide [Lasix] 20 mg PO DAILY Esomeprazole Magnesium [Nexium] 40 mg PO DAILY Citalopram Hydrobromide [Celexa] 40 mg PO SUTUTH Citalopram [CeleXA] 20 mg PO MOWE Calcium Carbonate [Calcium] 600 mg PO BID Cholecalciferol (Vitamin D3) [Vitamin D3] 5,000 unit PO 1630 Docusate [Colace] 100 mg PO BID Ferrous Sulfate 325 mg PO BID Glycerin/Propylene Glycol [Artificial Tears Drops] 1 drop BOTH EYES Q8H PRN PRN Reason: Dry Eye(S) HYDROcodone/Acet 5/325 mg [[place] 5-325 mg] 1 tab PO BID 5 Days #10 tab Home Medications: Ascorbic Acid [Vitamin C] 500 mg PO 1630 10/08/18 [History] Calcium Carbonate [Calcium] 600 mg PO BID 10/08/18 [History] Cetirizine HCl [Zyrtec] 10 mg PO 199910/08/18 [History] Cholecalciferol (Vitamin D3) [Vitamin D3] 5,000 unit PO 1630 10/08/18 [History] Citalopram Hydrobromide [Celexa] 40 mg PO SUTUTHSA 10/08/18 [History] Citalopram [CeleXA] 20 mg PO MOWEFR 10/08/18 [History] Docusate [Colace] 100 mg PO BID 10/08/18 [History] Esomeprazole Magnesium [Nexium] 40 mg PO DAILY 10/08/18 [History] Ferrous Sulfate 325 mg PO BID 10/08/18 [History] Fluticasone Propionate Nasal [Flonase] 2 spray NS 199910/08/18 [History] Furosemide [Lasix] 20 mg PO DAILY 10/08/18 [History] Glycerin/Propylene Glycol [Artificial Tears Drops] 1 drop BOTH EYES Q8H PRN 10/08/18 [History] Latanoprost [Xalatan] 1 drop BOTH EYES HS 10/08/18 [History] Loratadine [Claritin] 10 mg PO DAILY PRN 10/08/18 [History] Potassium Chloride 20 meq PO DAILY 10/08/18 [History] Raloxifene [Evista] 60 mg PO 199910/08/18 [History] Sodium Chloride [Sodium Chloride Tab] 1 gm PO DAILY 10/08/18 [History] Cefepime HCl/Dextrose, Iso-Osm [Cefepime 2 gm Injection] 2 gm IV BID 5 Days #10 froz.piggy 10/12/18 [Rx] HYDROcodone/Acet 5/325 mg [Crawford 5-325 mg] 1 tab PO BID 5 Days #10 tab 10/12/18 [Rx] Allergies/Adverse Reactions: Allergy/AdvReac Type Severity Reaction Status Date / Time TREVOR Inhibitors Allergy Swelling Verified 10/07/18 22:30 of the Eye enalaprilat [From Vasotec] Allergy Facial Verified 10/07/18 22:30 swelling aspirin [ASA] AdvReac GI bleed Verified 10/07/18 22:30 nitrofurantoin AdvReac UTI/Nausea Verified 10/07/18 22:30 [From Macrobid] Date of admission: 10/08/18 13:41 Primary care physician: PCP NONE Consults: 10/07/18 22:27 Consult to Nutrition [CONS] Routine Comment: Consulting Provider: NUTRITION Reason for Dietary Consult: MST Score Consult to Experimental Box Tester [CONS] Routine Reason for SW Consult: DC planning, return to ECF 10/08/18 01:08 Consult to Orthopedic Surgery [CONS] Routine Consulting Provider: Orthoped[facility] Reason for Consult: Sending facility spoke to curtains and draperies salesperson ortho who agreed to see patient in consult. Call Completed: No 10/08/18 13:43 Consult to Case Management [CONS] Routine Comment: Consult to Physical Therapy [CONS] Routine Comment: Evaluate, develop and implement POC Reason for Consult: dispostion Does patient have active BEDREST order?: No Is patient medically & hemodynamically stable?: Yes Patient assessed for mobility or mobilized this visit?: Yes OT [Consult to Occupational Therapy] [CONS] Routine Comment: Evaluate, develop and implement POC Reason for Consult: disposition Does patient have active BEDREST order?: No Is patient medically & hemodynamically stable?: Yes Patient assessed for mobility or mobilized this visit?: Yes 10/09/18 13:02 Consult to Case Management [CONS] Routine Comment: Consult to Nutrition [CONS] Routine Comment: Consulting Provider: NUTRITION Reason for Dietary Consult: PO Supplementation 10/11/18 15:23 Midline [Consult to Invasive Line Access Team] [CONS] Routine Reason for Consult: [facility] antibiotic Line Type: Midline 10/11/18 18:28 Consult to Urology [CONS] Routine Consulting Provider: Urology [facility] Reason for Consult: unable to place pollard Call Completed: Yes - Constitutional Vitals: Temp Pulse Resp BP Pulse Ox 98.5 F 91 16 134/73 96 10/12/18 06:41 10/12/18 06:41 10/12/18 06:41 10/12/18 06:41 10/12/18 06:41 Exam: General: Alert. Oriented to self only which is her baseline HEENT:Pupils equal, round and reactive. Poor dentition Cardiovascular:Heart murmur noted. No JVD. Pulse regular. Abdomen: Soft, nontender : Pollard in situ draining concentrated urine Lungs:Normal breath sounds, no wheezes or crackles. Extremities: Right hip dressing c/d/i, neurovascularly intact distally - Patient Status Disposition: Transfer SNF Condition: Fair Overall status at discharge: patient is progressing back to baseline - Discharge Instructions Instructions: Anemia (GEN), Fall Prevention (DC), Urinary Tract Infection in Women (DC) Follow Up With: Rodolfo Suh MD [Non-Partnered Physician] - 10/24/18 1:00 pm Kiran Torres [Partnered Physician] - Additional Instructions: Completed a course of IV antibiotics for Pseudomonas UTI Follow up with orthopedics in 2 weeks Follow-up with urology in 1 week for voiding trial Repeat CBC in one week and follow-up with PCP to ensure resolution of leukocytosis after a course of antibiotics - Diet and Activity Activity: as per physical therapy Diet: advance to your usual diet
--- NOTE | 2018-10-12 10:49 | Physician Discharge Referral ---
ExtendedCare Referral Info Institutional Level of Care: Skilled - Diagnosis (1) Fall Priority: Secondary Status: Acute (2) Femoral neck fracture Priority: Primary Status: Acute (3) Acute blood loss as cause of postoperative anemia Priority: Secondary Status: Acute (4) Iron deficiency anemia Priority: Secondary Status: Acute (5) DVT prophylaxis Priority: Secondary Status: Acute (6) Dementia Priority: Secondary Status: Acute (7) Urinary tract infection Priority: Secondary Status: Acute Prognosis: Fair - Transfer Medications Prescriptions: Cefepime HCl/Dextrose, Iso-Osm [Cefepime 2 gm Injection] 2 gm IV BID 5 Days #10 froz.piggy HYDROcodone/Acet 5/325 mg [[place] 5-325 mg] 1 tab PO BID 5 Days #10 tab Home Medications: Ascorbic Acid [Vitamin C] 500 mg PO 162910/08/18 [History] Calcium Carbonate [Calcium] 600 mg PO BID 10/08/18 [History] Cetirizine HCl [Zyrtec] 10 mg PO 199910/08/18 [History] Cholecalciferol (Vitamin D3) [Vitamin D3] 5,000 unit PO 162910/08/18 [History] Citalopram Hydrobromide [Celexa] 40 mg PO SUTUTHSA 10/08/18 [History] Citalopram [CeleXA] 20 mg PO MOWEFR 10/08/18 [History] Docusate [Colace] 100 mg PO BID 10/08/18 [History] Esomeprazole Magnesium [Nexium] 40 mg PO DAILY 10/08/18 [History] Ferrous Sulfate 325 mg PO BID 10/08/18 [History] Fluticasone Propionate Nasal [Flonase] 2 spray NS 199910/08/18 [History] Furosemide [Lasix] 20 mg PO DAILY 10/08/18 [History] Glycerin/Propylene Glycol [Artificial Tears Drops] 1 drop BOTH EYES Q8H PRN 10/08/18 [History] Latanoprost [Xalatan] 1 drop BOTH EYES HS 10/08/18 [History] Loratadine [Claritin] 10 mg PO DAILY PRN 10/08/18 [History] Potassium Chloride 20 meq PO DAILY 10/08/18 [History] Raloxifene [Evista] 60 mg PO 199910/08/18 [History] Sodium Chloride [Sodium Chloride Tab] 1 gm PO DAILY 10/08/18 [History] Cefepime HCl/Dextrose, Iso-Osm [Cefepime 2 gm Injection] 2 gm IV BID 5 Days #10 froz.piggy 10/12/18 [Rx] HYDROcodone/Acet 5/325 mg [Beverly 5-325 mg] 1 tab PO BID 5 Days #10 tab 10/12/18 [Rx] Allergies/Adverse Reactions: Allergy/AdvReac Type Severity Reaction Status Date / Time TREVOR Inhibitors Allergy Swelling Verified 10/07/18 22:30 of the Eye enalaprilat [From Vasotec] Allergy Facial Verified 10/07/18 22:30 swelling aspirin [ASA] AdvReac GI bleed Verified 10/07/18 22:30 nitrofurantoin AdvReac UTI/Nausea Verified 10/07/18 22:30 [From Macrobid] - Respiratory Orders Smoking Cessation: Smoking cessation has been advised. For more information, call the [employer] Tobacco Quit Line at 0-961-EQUC-NOW. - Rehabiliation Orders Rehab Orders: Evaluation for Physical Therapy, Evaluation for Occupational Therapy - Treatments List/Other: Complete IV Maxipime for 5 additional days - Diet Orders Mechanical Soft CERTIFICATION: I certify that the transfer of the above named patient to an Extended Care Facility is necessary for the continuing treatment of the diagnosis listed. The above information is true and accurate reflection of patient's current condition. Confidential - Redisclosure prohibited without a patient's written consent.
[2018-10-12 15:31] VITALS: BP 135/70
== END 2018-10-12 19:40 | DRG 470 ==
LOC: 3NENU → SUATTDRO 10-08 13:41
PROVIDERS: ADMIT Internal Medicine Nephrology; ATTEND Internal Medicine